=== PATIENT | male | born 1980 | race Caucasian/White ===

== ENCOUNTER 2019-11-14 16:48 | Emergency (ER) | payer OTHER, SELFPAY ==
--- NOTE | ~2019-11-14 | XR_ITS ---
XR foot RT 2V 11/14/2019 17:09 INDICATION: Right foot pain after dropping heavy object on foot. PROCEDURE: 2 views right foot COMPARISON: No prior studies for comparison. FINDINGS: Fracture, dislocation or subluxation is not identified. Lisfranc joint intact. The soft tis sues appear within normal limits. No foreign bodies are identified. IMPRESSION: 1: NO ACUTE BONE OR JOINT ABNORMALITY IDENTIFIED. Reviewed, dictated and finalized at location A.
[2019-11-14 16:59] VITALS: BP 110/76; PULSE 120; RESP 20; TEMP 37; O2SAT 97
--- NOTE | 2019-11-14 17:40 | ED.GENADULT ---
HPI - General Adult General Chief complaint: Extremity Injury, Lower <Jack Fay PA-C - Last Filed: 11/14/19 17:43> Stated complaint: right foot injury <Jack Fay PA-C - Last Filed: 11/14/19 17:43> Time Seen by Provider: 11/14/19 17:10 <Jack Fay PA-C - Last Filed: 11/14/19 17:43> Source: patient <Jack Fay PA-C - Last Filed: 11/14/19 17:43> Mode of arrival: ambulatory <Jack Fay PA-C - Last Filed: 11/14/19 17:43> Limitations: no limitations <Jack Fay PA-C - Last Filed: 11/14/19 17:43> History of Present Illness HPI narrative: Patient is a 39-year-old male who presented with right foot pain noting he dropped a heavy object onto the dorsal surface of the right foot patient notes aching pain worse with weightbearing and activity since is able to bear weight patient denies other injuries or complaints has not taken anything for his symptoms and is otherwise resting comfortably in the room in no distress <Jack Fay PA-C - Last Filed: 11/14/19 17:43> Related Data Home medications: Home Medications Medication Instructions Recorded Confirmed No Home Medications 11/14/19 11/14/19 <Jack Fay PA-C - Last Filed: 11/14/19 17:43> Allergies/adverse reactions: Allergies Allergy/AdvReac Type Severity Reaction Status Date / Time No Known Allergies Allergy Mild Verified 11/14/19 17:02 <Jack Fay PA-C - Last Filed: 11/14/19 17:43> Review of Systems Review of Systems: All systems reviewed & are unremarkable except as noted in HPI and below <Jack Fay PA-C - Last Filed: 11/14/19 17:43> PMFSH Social History Social History: Social History (Updated 11/14/19 @ 17:41 by Jack Fay PA-C) Smoking status: Never smoker <Jack Fay PA-C - Last Filed: 11/14/19 17:43> Exam Narrative: Exam Narrative: GENERAL: Well-appearing, well-nourished, and in no acute distress. HEAD: Normocephalic, atraumatic. EYES: PERRLA and EOMI. ENT: Nares clear, no rhinorrhea or epistaxis. Mucous membranes moist. EXTREMITIES: Normal range of motion. No edema. Bruising swelling and tenderness over the right midfoot SKIN: Warm, dry, no rash. NEURO: No focal deficits. Alert and oriented x3. Neurovascularly intact. Capillary refill less than 2 seconds PSYCH: Normal mood and affect. <Jack Fay PA-C - Last Filed: 11/14/19 17:43> Course Course Emergency Course: Patient in the room in no distress aware of case findings treatment plan and diagnosis <Jack Fay PA-C - Last Filed: 11/14/19 17:43> Vital Signs Vital signs: Vital Signs Temperature 98.6 F 11/14/19 16:59 Pulse Rate 120 H 11/14/19 16:59 Respiratory Rate 20 11/14/19 16:59 Blood Pressure 110/76 11/14/19 16:59 Pulse Oximetry 97 11/14/19 16:59 Temperature 98.6 F 11/14/19 16:59 Pulse Rate 120 H 11/14/19 16:59 Respiratory Rate 20 11/14/19 16:59 Blood Pressure 110/76 11/14/19 16:59 Pulse Oximetry 97 11/14/19 16:59 <Jack Fay PA-C - Last Filed: 11/14/19 17:43> Vital Signs Temperature 98.6 F 11/14/19 16:59 Pulse Rate 120 H 11/14/19 16:59 Respiratory Rate 20 11/14/19 16:59 Blood Pressure 110/76 11/14/19 16:59 Pulse Oximetry 97 11/14/19 16:59 Temperature 98.6 F 11/14/19 16:59 Pulse Rate 120 H 11/14/19 16:59 Respiratory Rate 20 11/14/19 16:59 Blood Pressure 110/76 11/14/19 16:59 Pulse Oximetry 97 11/14/19 16:59 <Carine Blackmon MD - Last Filed: 11/14/19 20:11> Medical Decision Making MDM Narrative Medical decision making narrative: Patients injury or pain is consistent with musculoskeletal etiology. No signs of neurological or vascular compromise on exam. Compartments and tisues are soft without signs of compartment syndrome. Pain is felt appropriate for further evaluation on an outpatient basis. <Jack Fay PA-C - Last
== END 2019-11-14 17:55 | disposition home or self-care (01) ==
PROVIDERS: Emergency Provider Emergency Medicine; PCP Internal Medicine
DX: S90.31XA Contusion of right foot, initial encounter (principal); W20.8XXA Other cause of strike by thrown, projected or falling object, initial encounter
CPT/HCPCS: 73620; 99283

== ENCOUNTER 2023-11-15 13:26 | Emergency (ER) | payer OTHER, SELFPAY ==
[2023-11-15 13:41] VITALS: BP 104/75; PULSE 92; RESP 16; TEMP 36.6; O2SAT 94
--- NOTE | 2023-11-15 13:43 | ED.URI ---
HPI - URI/Sore Throat General Chief Complaint: Upper Respiratory Infection Stated Complaint: Chest Congestion/Cough/Headache/Diarrhea Time Seen by Provider: 11/15/23 13:43 Source: patient, RN notes reviewed and old records reviewed Mode of arrival: ambulatory Limitations: no limitations History of Present Illness HPI Narrative: 43-year-old male presents to the [facility] with complaints of cough, congestion, headache and diarrhea for 1 week Denies fevers. Denies chest pain or shortness of breath. No treatment prior to arrival Related Data Allergies Allergy/AdvReac Type Severity Reaction Status Date / Time No Known Allergies Allergy Mild Verified 11/14/19 17:02 Review of Systems Review of Systems: All systems reviewed & are unremarkable except as noted in HPI and below Constitutional: Constitutional: Reports as per HPI Eyes: Eyes: Reports no additional eye complaints ENT: Reports as per HPI Cardiovascular: Cardiovascular: Reports no additional cardiovascular complaints, Denies chest pain and Denies dyspnea Respiratory: Respiratory: Reports as per HPI, Denies chest congestion, Reports cough and Denies dyspnea Gastrointestinal: Gastrointestinal: Reports no additional gastrointestinal complaints, Denies abdominal pain, Denies nausea and Denies vomiting Musculoskeletal: Musculoskeletal: Reports no additional musculoskeletal complaints Integumentary/Breasts: Skin/Breast: Reports system reviewed and no additional complaints, except as docu Neurologic: Reports system reviewed and no additional complaints, except as documented Psychiatric: Psychiatric: Reports no additional psychiatric complaints Allergic/Immunologic: Allergic/Immunologic: Reports no additional allergic/immunologic complaints [facility] Social History Social History (Updated 11/14/19 @ 17:41 by Jack Fay, PAYenC) Smoking status: Never smoker Comments At the time of my signature, I reviewed and agree with the nursing past medical, surgical, social, and family history. There is no relevant family history pertinent to the patient complaint. Exam Const: General: cooperative, healthy appearing, comfortable, no acute distress, well developed, alert and well nourished Nutritional Appearance: well nourished and obese Orientation/consciousness: patient oriented x3 Limitations: no limitations HENMT: Head: normal to inspection Ears: hearing grossly normal bilaterally, external ears normal, TM's normal bilaterally, EAC's normal, mastoids normal and no periauricular adenopathy Face/Nose/Sinus: Normal external nose present, Normal nares present, Normal nasal mucous membranes and turbinates present, normal facial exam and face symmetric Face and sinus: normal facial exam and face symmetric Throat: uvula midline, postnasal drainage and no uvular edema Eyes: General: appearance normal, both eyes and all related structures Alignment and Position: alignment normal Periorbital: periorbital findings normal Pupils: Equal, round and reactive pupils present EOM: EOMs intact bilaterally Neck: Neck: normal visual inspection, full ROM, no lymphadenopathy and no meningeal signs Chest: Chest palpation & inspection: normal inspection of the chest Resp: Effort & Inspection: normal respiratory effort and able to speak in complete sentences Auscultation: clear to auscultation bilaterally, no crackles, no rales, no rhonchi, no wheezes and diminished lung sounds bilateral throughout Cardio: Rate: regular rate Rhythm: regular rhythm Skin: General skin exam: normal color and no rashes or lesions noted Lesions: no lesions Rashes: no rashes Trauma: no lacerations or abrasions Wounds: no wounds Neuro: General: patient oriented x3, gait normal, tone normal, moves all extremities and no meningeal signs Cranial nerves: Yes Equal, round and reactive pupils present Cognition (Neuro): normal cognition Speech: normal speech Gait exam (Neuro): Normal gait present Extrem: Gener
== END 2023-11-15 14:04 | disposition home or self-care (01) ==
PROVIDERS: Emergency Provider Nurse Practitioner
DX: J40 Bronchitis, not specified as acute or chronic (principal)
CPT/HCPCS: 99213; G0463